=== PATIENT | female | born 1965 | race Two or more races ===

== ENCOUNTER → 2025-06-03 08:36 | Outpatient (REF) | payer OTHER, SELFPAY | LOC: HWWDC 08:36 | PROVIDERS: ATTENDING PHYSICIAN Nurse Practitioner Obstetrics & Gynecology; FAMILY PHYSICIAN Family Medicine | DX: Z12.31 Encounter for screening mammogram for malignant neoplasm of breast (principal) | CPT/HCPCS: 77063; 77067 ==